=== PATIENT | male | born 1960 | race Caucasian/White ===

== ENCOUNTER 2018-02-02 10:37 | Emergency (ER) | payer BC, OTHER ==
[2018-02-02 10:44] VITALS: BP 140/89
--- NOTE | 2018-02-02 10:56 | EDM.PDOC ---
ED HPI GENERAL MEDICAL PROBLEM - General Chief Complaint: Lower Extremity Injury/Pain Stated Complaint: FALL Time Seen by Provider: 02/02/18 10:54 Source of Information: Reports: Patient History Limitations: Reports: No Limitations - History of Present Illness INITIAL COMMENTS - FREE TEXT/NARRATIVE: HISTORY AND PHYSICAL: History of present illness: Patient is a 57-year-old male who presents to the emergency room today with complaints of "tailbone pain". States he fell 01/29/2018 from standing height onto his tailbone and striking the back of his head. He denies any loss of consciousness. States he has increased pain with sitting and applying pressure to buttocks. Denies any urinary or fecal incontinence. He denies any numbness or tingling to his distal extremities. He has been ambulatory without difficulty. Been able to have normal bowel movements and no concerns with urination. States he has tried use Tylenol and ibuprofen [id number] without much relief. Review of systems: As per history of present illness and below otherwise all systems reviewed and negative. Past medical history: As per history of present illness and as reviewed below otherwise noncontributory. Surgical history: As per history of present illness and as reviewed below otherwise noncontributory. Social history: No reported history of drug or alcohol abuse. Family history: As per history of present illness and as reviewed below otherwise noncontributory. Physical exam: General: Well-developed and well-nourished 57-year-old male. Alert and oriented. Nontoxic appearing and in no acute distress. HEENT: Nontender with palpation, normocephalic, pupils equal and reactive bilaterally, negative for conjunctival pallor or scleral icterus, mucous membranes moist, throat clear, neck supple, nontender, trachea midline. No drooling or trismus noted. No meningeal signs Lungs: Clear to auscultation, breath sounds equal bilaterally, chest nontender. Heart: S1S2, regular rate and rhythm without overt murmur Abdomen: Soft, nondistended, nontender. Negative for masses or hepatosplenomegaly. Negative for costovertebral tenderness. Pelvis: Stable nontender. Genitourinary: Deferred. Rectal: Deferred. Skin: Intact, warm, dry. No lesions or rashes noted. Extremities: Moves all extremities per self without difficulty or deficits, negative for cords or calf pain. Neurovascular unremarkable. C-Spine/Back: No pinpoint vertebral tenderness upon palpation. No crepitus, step -offs or obvious deformities. Patient is fully ambulatory without difficulty or deficits. No numbness or tingling distal extremities. Will to ambulate on heels and toes. No urinary or fecal incontinence. Neuro: Awake, alert, oriented. Cranial nerves II through XII unremarkable. Cerebellum unremarkable. Motor and sensory unremarkable throughout. Exam nonfocal. Notes: I did discuss doing a head CT with the patient. He denies any tenderness with palpation, change in vision, nausea, headache or change in mental status. There is no visible soft tissue swelling or erythema/bruising. He declines a head CT at this time. He is not on any blood thinners. Will x-ray the pelvis and sacrum. No acute findings with the x-ray images. We'll give him tramadol. Supportive care measures were reviewed with patient. He voices understanding and is agreeable to plan of care. He denies any further questions at this time. Diagnostics: 1 view pelvis, sacrum Therapeutics: [] Impression: Coccyx injury Plan: 1. Please take the tramadol as directed. This medication may cause drowsiness so do not take it will driving her needing to be functioning outside of the house. He may use Tylenol and/or ibuprofen as needed for breakthrough pain. 2. Rest, ice to the area and use a doughnut/cut-out cushion seat to help alleviate discomfort. 3. They want to use a stool softener to help avoid any straining (may cause pain if straining with your bowel movements). 4. Follow-up with your primary caregiver in the next 1-2 days. Return to the ED as needed and as discussed Definitive disposition and diagnosis as appropriate pending reevaluation and review of above. Onset Date: 01/29/18 Duration: Day(s): Location: Reports: Pelvis Lower Back Pain Score (Numeric/FACES): 7 - Related Data Allergies Allergy/AdvReac Type Severity Reaction Status Date / Time lisinopril Allergy Drowsiness Verified 02/02/18 10:44 zolpidem tartrate Allergy Agitation Verified 02/02/18 10:44 [From Ambien] Home Meds: Home Meds Multivitamin [Multivitamins] 1 cap PO DAILY 01/25/14 [History] Simvastatin [Zocor] 20 mg PO BEDTIME 01/25/14 [History] Tamsulosin [Flomax] 0.4 mg PO BEDTIME 01/25/14 [History] Allopurinol [Zyloprim] 300 mg PO DAILY 03/22/14 [History] Cholecalciferol (Vitamin D3) [Vitamin D3] 2,000 unit PO BID 03/22/14 [History] Lansoprazole [Prevacid] 30 mg PO DAILY 07/05/14 [History] Escitalopram [Lexapro] 20 mg PO DAILY 11/23/15 [History] [place] Carbonate 150 mg PO BID 11/23/15 [History] [place] Carbonate 300 mg PO BID 11/23/15 [History] Losartan [Cozaar] 50 mg PO DAILY 11/23/15 [History] Primidone 250 mg PO DAILY 11/23/15 [History] Venlafaxine [Effexor XR] 75 mg PO DAILY 11/23/15 [History] risperiDONE 1 mg PO BID 11/23/15 [History] Past Medical History - Past Health History Medical/Surgical History: Denies Medical/Surgical History HEENT History: Reports: None Cardiovascular History: Reports: None Respiratory History: Reports: None Gastrointestinal History: Reports: GERD Genitourinary History: Reports: Renal Calculus Musculoskeletal History: Reports: Fracture Neurological History: Reports: None Psychiatric History: Reports: Depression, PTSD Endocrine/Metabolic History: Reports: Diabetes, Type II Hematologic History: Reports: None Immunologic History: Reports: None Oncologic (Cancer) History: Reports: None - Infectious Disease History Infectious Disease History: Reports: Measles - Past Surgical History GI Surgical History: Reports: Appendectomy, Colostomy, Hernia, Abdominal, Hernia Repair/Other Social & Family History - Tobacco Use Smoking Status *Q: Never Smoker Second Hand Smoke Exposure: No - Alcohol Use Days Per Week of Alcohol Use: 0 - Recreational Drug Use Recreational Drug Use: No Review of Systems - Review of Systems Review Of Systems: ROS reveals no pertinent complaints other than HPI. ED EXAM, GENERAL - Physical Exam Exam: See Below (See dictation) Course - Vital Signs Last Recorded V/S: Last Vital Signs Temp 98.0 F 02/02/18 10:41 Pulse 89 02/02/18 10:41 Resp 18 02/02/18 10:41 BP 140/89 02/02/18 10:41 Pulse Ox 100 02/02/18 10:41 Departure - Departure Time of Disposition: 13:07 Disposition: Home, Self-Care 01 Clinical Impression: Injury of coccyx Qualifiers: Encounter type: initial encounter Qualified Code(s): S39.92XA - Unspecified injury of lower back, initial encounter - Discharge Information Instructions: Tailbone Injury Referrals: PCP,None [Primary Care Provider] - Forms: ED Department Discharge Additional Instructions: The following information is given to patients seen in the emergency department who are being discharged to home. This information is to outline your options for follow-up care. We provide all patients seen in our emergency department with a follow-up referral. The need for follow-up, as well as the timing and circumstances, are variable depending upon the specifics of your emergency department visit. If you don't have a primary care physician on staff, we will provide you with a referral. We always advise you to contact your personal physician following an emergency department visit to inform them of the circumstance of the visit and for follow-up with them and/or the need for any referrals to a consulting specialist. The emergency department will also refer you to a specialist when appropriate. This referral assures that you have the opportunity for follow-up care with a specialist. All of these measure are taken in an effort to provide you with optimal care, which includes your follow-up. Under all circumstances we always encourage you to contact your private physician who remains a resource for coordinating your care. When calling for follow-up care, please make the office aware that this follow-up is from your recent emergency room visit. If for any reason you are refused follow-up, please contact the [facility] Emergency Department at and asked to speak to the emergency department charge nurse. [facility] [address] [place] [id number] 1. Please take the tramadol as directed. This medication may cause drowsiness so do not take it will driving her needing to be functioning outside of the house. He may use Tylenol and/or ibuprofen as needed for breakthrough pain. 2. Rest, ice to the area and use a doughnut/cut-out cushion seat to help alleviate discomfort. 3. They want to use a stool softener to help avoid any straining (may cause pain if straining with your bowel movements). 4. Follow-up with your primary caregiver in the next 1-2 days. Return to the ED as needed and as discussed
--- NOTE | 2018-02-02 12:58 | CR ---
EXAMINATION: Pelvis and sacrum and coccyx HISTORY: Pain COMPARISON: None TECHNIQUE: AP pelvis and AP and lateral views of the sacrum and coccyx FINDINGS: There is no acute osseous abnormality, dislocation, or fracture. SI joints are symmetric. H ip joint spaces are preserved. Bone mineralization is normal. Iliopectineal lines are intact. Clips p roject over the lower pelvis. Degenerative changes noted within the lower lumbar spine. IMPRESSION: No acute osseous abnormality identified.
== END 2018-02-02 13:16 | disposition home or self-care (01) ==
LOC: MW.ED 10:37
DX: S39.92XA Unspecified injury of lower back, initial encounter (principal); E11.9 Type 2 diabetes mellitus without complications; Z88.8 Allergy status to other drugs, medicaments and biological substances; Z79.899 Other long term (current) drug therapy; W19.XXXA Unspecified fall, initial encounter
CPT/HCPCS: 72170; 72170-26; 72220; 72220-26; 99282; 99283

== ENCOUNTER 2019-02-15 08:24 | Emergency (ER) | payer BC ==
[2019-02-15] MEDS ORDERED: Sodium Chloride 0.9% 10 ML Syringe FLUSH PRN (08:34)
[2019-02-15] MEDS ORDERED: Sodium Chloride 0.9% 2.5 ML Syringe FLUSH PRN (08:34)
[2019-02-15] MEDS ORDERED: Aspirin 81 MG Tab.Chew PO ONE (08:35)
[2019-02-15] MEDS ORDERED: Enoxaparin 150 MG/1 ML Syringe SUBCUT ONE ×2 (08:35→10:53)
[2019-02-15] MEDS: Diltiazem 25 MG/5 ML SDV IVPUSH ONE ×2 (08:46→10:11)
[2019-02-15] MEDS ORDERED: Sodium Chloride 0.9% 1,000 ML IV ONE (08:46)
--- NOTE | 2019-02-15 08:50 | EDM.PDOC ---
ED HPI GENERAL MEDICAL PROBLEM - General Stated Complaint: CHEST PAIN Time Seen by Provider: 02/15/19 08:33 - History of Present Illness INITIAL COMMENTS - FREE TEXT/NARRATIVE: HISTORY AND PHYSICAL: History of present illness: Patient's a 58-year-old white male with multiple medical problems including prior coronary artery stent and prior episode of atrial fibrillation who presents with a concern of shortness of breath chest pain and rapid heart rate started abruptly prior to arrival. He denies nausea vomiting diaphoresis or other concern. Patient states this episode began at 5 AM precisely and that he has in a normal sinus rhythm usually. Patient's blood pressure is systolic 100 and he continues with chest pain in the emergency department. I discussed with patient the combination of symptoms with his known coronary artery disease and new onset atrial fibrillation as it relates to treatment options and concerns I have regarding the stability of his current situation patient understands and is in agreement with electrocardioversion in the emergency if necessary. Patient spontaneously converted while in emergency department systolic blood pressure now is 130 heart rate is 120 sinus rhythm chest pain is resolved Review of systems: As per history of present illness and below otherwise all systems reviewed and negative. Past medical history: As per history of present illness and as reviewed below otherwise noncontributory. Surgical history: As per history of present illness and as reviewed below otherwise noncontributory. Social history: No reported history of drug or alcohol abuse. Family history: As per history of present illness and as reviewed below otherwise noncontributory. Physical exam: HEENT: Atraumatic, normocephalic, pupils reactive, somewhat sallow complexion no scleral icterus noted, mucous membranes moist, throat clear, neck supple, nontender, trachea midline. Lungs: Clear to auscultation, breath sounds equal bilaterally, chest nontender. Heart: S1S2, irregularly irregular negative for clicks, rubs, or JVD. Abdomen: Soft, nondistended, nontender. Negative for masses or hepatosplenomegaly. Negative for costovertebral tenderness. Pelvis: Stable nontender. Genitourinary: Deferred. Rectal: Deferred. Extremities: Atraumatic, negative for cords or calf pain. Neurovascular unremarkable. Neuro: Awake, alert, anxious, oriented. Cranial nerves II through XII unremarkable. Cerebellum unremarkable. Motor and sensory unremarkable throughout. Exam nonfocal. Diagnostics: CBC CMP troponin PT/INR TSH chest x-ray EKG Therapeutics: IV O2 monitor aspirin 325 mg Impression: #1 chest pain #2 atrial fibrillation with rapid ventricular response with spontaneous conversion in emergency department Definitive disposition and diagnosis as appropriate pending reevaluation and review of above. - Related Data Allergies Allergy/AdvReac Type Severity Reaction Status Date / Time lisinopril Allergy Drowsiness Verified 02/02/18 10:44 zolpidem tartrate Allergy Agitation Verified 02/02/18 10:44 [From Conchisien] Home Meds: Home Meds Multivitamin [Multivitamins] 1 cap PO DAILY 01/25/14 [History] Simvastatin [Zocor] 20 mg PO BEDTIME 01/25/14 [History] Tamsulosin [Flomax] 0.4 mg PO BEDTIME 01/25/14 [History] Allopurinol [Zyloprim] 300 mg PO DAILY 03/22/14 [History] Cholecalciferol (Vitamin D3) [Vitamin D3] 2,000 unit PO BID 03/22/14 [History] Lansoprazole [Prevacid] 30 mg PO DAILY 07/05/14 [History] Escitalopram [Lexapro] 20 mg PO DAILY 11/23/15 [History] [place] Carbonate 150 mg PO BID 11/23/15 [History] [place] Carbonate 300 mg PO BID 11/23/15 [History] Losartan [Cozaar] 50 mg PO DAILY 11/23/15 [History] Primidone 250 mg PO DAILY 11/23/15 [History] Venlafaxine [Effexor XR] 75 mg PO DAILY 11/23/15 [History] risperiDONE 1 mg PO BID 11/23/15 [History] Past Medical History - Past Health History Medical/Surgical History: Denies Medical/Surgical History HEENT History: Reports: None Cardiovascular History: Reports: None Respiratory History: Reports: None Gastrointestinal History: Reports: GERD Genitourinary History: Reports: Renal Calculus Musculoskeletal History: Reports: Fracture Neurological History: Reports: None Psychiatric History: Reports: Depression, PTSD Endocrine/Metabolic History: Reports: Diabetes, Type II Hematologic History: Reports: None Immunologic History: Reports: None Oncologic (Cancer) History: Reports: None - Infectious Disease History Infectious Disease History: Reports: Measles - Past Surgical History GI Surgical History: Reports: Appendectomy, Colostomy, Hernia, Abdominal, Hernia Repair/Other Social & Family History - Family History Family Medical History: Noncontributory - Caffeine Use Caffeine Use: Reports: Energy Drinks ED ROS GENERAL - Review of Systems Review Of Systems: ROS reveals no pertinent complaints other than HPI. ED EXAM, GENERAL - Physical Exam Exam: See Below (See dictation) Course - Vital Signs Last Recorded V/S: Last Vital Signs Temp 36.1 C 02/15/19 08:34 Pulse 116 H 02/15/19 10:58 Resp 16 02/15/19 10:25 BP 112/70 02/15/19 10:58 Pulse Ox 94 L 02/15/19 10:25 - Orders/Labs/Meds Orders: Active Orders 24 hr Category Date Time Status Cardiac Monitoring [RC] . DIRECTED Care 02/15/19 08:33 Active EKG Documentation Completion [RC] STAT Care 02/15/19 08:34 Active EKG Documentation Completion [RC] STAT Care 02/15/19 10:36 Active Oxygen Therapy, ED [RC] ASDIRECTED Care 02/15/19 08:33 Active Pulse Oximetry [RC] ASDIRECTED Care 02/15/19 08:34 Active DRUG SCREEN, URINE [URCHEM] Stat Lab 02/15/19 08:34 Ordered Sodium Chloride 0.9% [Saline Flush] Med 02/15/19 08:34 Active 10 ml FLUSH ASDIRECTED PRN Sodium Chloride 0.9% [Saline Flush] Med 02/15/19 08:34 Active 2.5 ml FLUSH ASDIRECTED PRN Saline Lock Insert [OM.PC] Stat Oth 02/15/19 08:33 Ordered Medication Orders Sodium Chloride (Saline Flush) 10 ml FLUSH ASDIRECTED PRN PRN Reason: Keep Vein Open Last Admin: 02/15/19 08:48 Dose: 10 ml Sodium Chloride (Saline Flush) 2.5 ml FLUSH ASDIRECTED PRN PRN Reason: Keep Vein Open Last Admin: 02/15/19 08:48 Dose: 2.5 ml Labs: Laboratory Tests 02/15/19 02/15/19 02/15/19 Range/Units 08:30 08:30 08:30 WBC 18.33 H (4.0-11.0) K/uL RBC 5.57 (4.50-5.90) M/uL Hgb 16.7 (13.0-17.0) g/dL Hct 51.1 H (38.0-50.0) % MCV 91.7 (80.0-98.0) fL MCH 30.0 (27.0-32.0) pg MCHC 32.7 (31.0-37.0) g/dL RDW Std Deviation 47.7 (28.0-62.0) fl RDW Coeff of Jon 14 (11.0-15.0) % Plt Count 254 (150-400) K/uL MPV 9.70 (7.40-12.00) fL Neut % (Auto) 74.9 (48.0-80.0) % Lymph % (Auto) 14.5 L (16.0-40.0) % [place]ink[place] % (Auto) 8.9 (0.0-15.0) % Eos % (Auto) 1.4 (0.0-7.0) % Baso % (Auto) 0.3 (0.0-1.5) % Neut # (Auto) 13.7 H (1.4-5.7) K/uL Lymph # (Auto) 2.7 H (0.6-2.4) K/uL Winkler # (Auto) 1.6 H (0.0-0.8) K/uL Eos # (Auto) 0.3 (0.0-0.7) K/uL Baso # (Auto) 0.1 (0.0-0.1) K/uL Nucleated RBC % 0.0 /100WBC Nucleated RBCs # 0 K/uL INR 1.05 Sodium 137 (136-148) mmol/L Potassium 4.0 (3.5-5.1) mmol/L Chloride 100 (98-107) mmol/L Carbon Dioxide 19.6 L (21.0-32.0) mmol/L BUN 15 (7.0-18.0) mg/dL Creatinine 1.7 H (0.8-1.3) mg/dL Est Cr Clr Drug Dosing TNP Estimated GFR (MDRD) 41.3 ml/min Glucose 299 H (74-106) mg/dL Calcium 9.1 (8.5-10.1) mg/dL Total Bilirubin 1.0 (0.2-1.0) mg/dL AST 31 (15-37) IU/L ALT 34 (14-63) IU/L Alkaline Phosphatase 32 L (46-116) U/L Troponin I 0.064 H* (0.000-0.056) ng/mL B-Natriuretic Peptide (<100) PG/ML Total Protein 7.7 (6.4-8.2) g/dL Albumin 3.7 (3.4-5.0) g/dL Globulin 4.0 (2.6-4.0) g/dL Albumin/Globulin Ratio 0.9 (0.9-1.6) TSH 3rd Generation 2.49 (0.36-3.74) uIU/mL 02/15/19 Range/Units 08:30 WBC (4.0-11.0) K/uL RBC (4.50-5.90) M/uL Hgb (13.0-17.0) g/dL Hct (38.0-50.0) % MCV (80.0-98.0) fL MCH (27.0-32.0) pg MCHC (31.0-37.0) g/dL RDW Std Deviation (28.0-62.0) fl RDW Coeff of Jon (11.0-15.0) % Plt Count (150-400) K/uL MPV (7.40-12.00) fL Neut % (Auto) (48.0-80.0) % Lymph % (Auto) (16.0-40.0) % [place]ink[place] % (Auto) (0.0-15.0) % Eos % (Auto) (0.0-7.0) % Baso % (Auto) (0.0-1.5) % Neut # (Auto) (1.4-5.7) K/uL Lymph # (Auto) (0.6-2.4) K/uL Winkler # (Auto) (0.0-0.8) K/uL Eos # (Auto) (0.0-0.7) K/uL Baso # (Auto) (0.0-0.1) K/uL Nucleated RBC % /100WBC Nucleated RBCs # K/uL INR Sodium (136-148) mmol/L Potassium (3.5-5.1) mmol/L Chloride (98-107) mmol/L Carbon Dioxide (21.0-32.0) mmol/L BUN (7.0-18.0) mg/dL Creatinine (0.8-1.3) mg/dL Est Cr Clr Drug Dosing Estimated GFR (MDRD) ml/min Glucose (74-106) mg/dL Calcium (8.5-10.1) mg/dL Total Bilirubin (0.2-1.0) mg/dL AST (15-37) IU/L ALT (14-63) IU/L Alkaline Phosphatase (46-116) U/L Troponin I (0.000-0.056) ng/mL B-Natriuretic Peptide 34 (<100) PG/ML Total Protein (6.4-8.2) g/dL Albumin (3.4-5.0) g/dL Globulin (2.6-4.0) g/dL Albumin/Globulin Ratio (0.9-1.6) TSH 3rd Generation (0.36-3.74) uIU/mL Meds: Medications Generic Name Dose Route Start Last Admin Trade Name Freq PRN Reason Stop Dose Admin Sodium Chloride 10 ml 02/15/19 08:34 02/15/19 08:48 Saline Flush FLUSH 10 ml ASDIRECTED PRN Administration Keep Vein Open Sodium Chloride 2.5 ml 02/15/19 08:34 02/15/19 08:48 Saline Flush FLUSH 2.5 ml ASDIRECTED PRN Administration Keep Vein Open Discontinued Medications Generic Name Dose Route Start Last Admin Trade Name Freq PRN Reason Stop Dose Admin Aspirin 324 mg 02/15/19 08:35 02/15/19 08:47 Aspirin PO 02/15/19 08:36 324 mg ONETIME ONE Administration Diltiazem HCl 25 mg 02/15/19 08:34 02/15/19 10:11 Diltiazem IVPUSH 02/15/19 08:35 Not Given ONETIME ONE Enoxaparin Sodium 150 mg 02/15/19 08:35 02/15/19 10:09 Lovenox SUBCUT 02/15/19 08:36 Not Given ONETIME ONE Enoxaparin Sodium 150 mg 02/15/19 10:53 02/15/19 10:56 Lovenox SUBCUT 02/15/19 10:54 150 mg ONETIME ONE Administration Fentanyl Confirm 02/15/19 08:59 02/15/19 10:10 Sublimaze Administered 02/15/19 09:00 Not Given Dose 100 mcg .ROUTE .STK-MED ONE Sodium Chloride 1,000 mls @ 999 mls/hr 02/15/19 08:46 02/15/19 08:47 Normal Saline IV 02/15/19 09:46 999 mls/hr .Bolus ONE Administration Lorazepam 1 mg 02/15/19 10:34 02/15/19 10:46 Ativan IVPUSH 02/15/19 10:35 1 mg ONETIME ONE Administration Metoprolol Tartrate 5 mg 02/15/19 10:33 02/15/19 10:40 Lopressor IVPUSH 02/15/19 10:34 5 mg ONETIME ONE Administration Metoprolol Tartrate 5 mg 02/15/19 10:55 02/15/19 10:58 Lopressor IVPUSH 02/15/19 10:56 5 mg ONETIME ONE Administration Metoprolol Tartrate Confirm 02/15/19 10:54 02/15/19 11:02 Lopressor Administered 02/15/19 10:55 Not Given Dose 5 mg .ROUTE .STK-MED ONE Metoprolol Tartrate 5 mg 02/15/19 10:58 Lopressor IVPUSH 02/15/19 10:59 ONETIME ONE Metoprolol Tartrate Confirm 02/15/19 10:56 02/15/19 11:02 Lopressor Administered 02/15/19 10:57 Not Given Dose 5 mg .ROUTE .STK-MED ONE Midazolam HCl Confirm 02/15/19 08:58 02/15/19 10:10 Versed 1 Mg/Ml Administered 02/15/19 08:59 Not Given Dose 2 mg .ROUTE .STK-MED ONE Morphine Sulfate 2 mg 02/15/19 10:31 02/15/19 10:44 Morphine IVPUSH 02/15/19 10:32 2 mg ONETIME ONE Administration Ondansetron HCl 4 mg 02/15/19 10:40 02/15/19 10:43 Zofran IVPUSH 02/15/19 10:41 4 mg ONETIME ONE Administration Ondansetron HCl Confirm 02/15/19 10:41 02/15/19 10:46 Zofran Administered 02/15/19 10:42 Not Given Dose 4 mg .ROUTE .STK-MED ONE Propofol Confirm 02/15/19 08:59 02/15/19 10:10 Diprivan 20 Ml Administered 02/15/19 09:00 Not Given Dose 200 mg .ROUTE .STK-MED ONE Departure - Departure Time of Disposition: 11:08 Disposition: DC/Tfer to Acute Hospital 02 Condition: Serious Clinical Impression: Chest pain, Atrial fibrillation with RVR - Discharge Information Referrals: PCP,Unknown [Primary Care Provider] - - My Orders Last 24 Hours: My Active Orders 02/15/19 08:33 Cardiac Monitoring [RC] . DIRECTED Oxygen Therapy, ED [RC] ASDIRECTED Saline Lock Insert [OM.PC] Stat 02/15/19 08:34 EKG Documentation Completion [RC] STAT Pulse Oximetry [RC] ASDIRECTED DRUG SCREEN, URINE [URCHEM] Stat Sodium Chloride 0.9% [Saline Flush] 10 ml FLUSH ASDIRECTED PRN Sodium Chloride 0.9% [Saline Flush] 2.5 ml FLUSH ASDIRECTED PRN 02/15/19 10:36 EKG Documentation Completion [RC] STAT - Assessment/Plan Last 24 Hours: My Active Orders 02/15/19 08:33 Cardiac Monitoring [RC] . DIRECTED Oxygen Therapy, ED [RC] ASDIRECTED Saline Lock Insert [OM.PC] Stat 02/15/19 08:34 EKG Documentation Completion [RC] STAT Pulse Oximetry [RC] ASDIRECTED DRUG SCREEN, URINE [URCHEM] Stat Sodium Chloride 0.9% [Saline Flush] 10 ml FLUSH ASDIRECTED PRN Sodium Chloride 0.9% [Saline Flush] 2.5 ml FLUSH ASDIRECTED PRN 02/15/19 10:36 EKG Documentation Completion [RC] STAT
[2019-02-15] MEDS ORDERED: Midazolam 1 MG/ML 2 ML SDV ONE (08:58)
[2019-02-15] MEDS ORDERED: fentaNYL 100 MCG/2 ML SDV ONE (08:59)
[2019-02-15] MEDS ORDERED: Propofol 200 MG/20 ML SDV ONE (08:59)
[2019-02-15 09:11] LABS: CHLORIDE,CL 100 mmol/L (98-107); SODIUM,NA 137 mmol/L (136-148)
--- NOTE | 2019-02-15 09:22 | CR ---
EXAMINATION: Portable chest radiograph. HISTORY: Shortness of breath. FINDINGS: The trachea is midline. The cardiomediastinal silhouette is within normal limits. No pulmonary infiltrates, effusions or pneumothorax. Osseous structures appear unremarkable. IMPRESSION: No acute cardiopulmonary process.
[2019-02-15] MEDS ORDERED: Morphine 2 MG/ML Syringe IVPUSH ONE (10:31)
[2019-02-15] MEDS ORDERED: Labetalol 20 MG/4 ML Syringe IVPUSH ONE (10:31)
[2019-02-15] MEDS ORDERED: Metoprolol Tartrate 5 MG/5 ML SDV IVPUSH ONE ×3 (10:33→10:58)
[2019-02-15] MEDS ORDERED: LORazepam 2 MG/ML SDV IVPUSH ONE (10:34)
[2019-02-15] MEDS ORDERED: Ondansetron 4 MG/2 ML SDV IVPUSH ONE (10:40)
[2019-02-15] MEDS ORDERED: Ondansetron 4 MG/2 ML SDV ONE (10:41)
[2019-02-15] MEDS ORDERED: Metoprolol Tartrate 5 MG/5 ML SDV ONE ×2 (10:54→10:56)
[2019-02-15 11:01] VITALS: BP 112/70
== END 2019-02-15 11:09 ==
LOC: MW.ED 08:24
DX: I48.91 Unspecified atrial fibrillation (principal); K21.9 Gastro-esophageal reflux disease without esophagitis; F32.9 Major depressive disorder, single episode, unspecified; E11.9 Type 2 diabetes mellitus without complications; Z88.8 Allergy status to other drugs, medicaments and biological substances; Z79.899 Other long term (current) drug therapy
CPT/HCPCS: 36415; 71045; 80053; 83880; 84443; 84484; 85025; 85610; 93005; 96361; 96372; 96374; 96375; 99285; A9270; J1650; J2060; J2270; J2405; J3490; J7040

== ENCOUNTER 2019-03-09 10:16 | Observation (INO) | payer BC ==
[2019-03-09] MEDS ORDERED: Sodium Chloride 0.9% 10 ML Syringe FLUSH PRN (10:25)
[2019-03-09] MEDS ORDERED: Sodium Chloride 0.9% 2.5 ML Syringe FLUSH PRN (10:25)
--- NOTE | 2019-03-09 10:26 | EDM.PDOC ---
ED HPI GENERAL MEDICAL PROBLEM - General Stated Complaint: DIZZY Time Seen by Provider: 03/09/19 10:19 Source of Information: Reports: Patient History Limitations: Reports: No Limitations - History of Present Illness INITIAL COMMENTS - FREE TEXT/NARRATIVE: History of present illness: []Patient started having palpitations and shortness of breath this morning. He was recently transferred to [place] for A. fib with RVR. He is currently on a blood thinner. He denies any chest pain at this time, numbness, tingling or difficulty speaking. Review of systems: As per history of present illness and below otherwise all systems reviewed and negative. Past medical history: As per history of present illness and as reviewed below otherwise noncontributory. Surgical history: As per history of present illness and as reviewed below otherwise noncontributory. Social history: No reported history of drug or alcohol abuse. Family history: As per history of present illness and as reviewed below otherwise noncontributory. Physical exam: General: Well developed, well nourished in NAD HEENT: Atraumatic, normocephalic, pupils reactive, negative for conjunctival pallor or scleral icterus, mucous membranes moist, throat clear, neck supple, nontender, trachea midline. Lungs: Clear to auscultation, breath sounds equal bilaterally, chest nontender. Heart: S1S2, regular, negative for clicks, rubs, or JVD. Abdomen: NABS, Soft, nondistended, nontender. Negative for masses or hepatosplenomegaly. Negative for costovertebral tenderness. Pelvis: Stable nontender. Genitourinary: Deferred. Rectal: Deferred. Extremities: Atraumatic, negative for cords or calf pain. Neurovascular unremarkable. Neuro: Awake, alert, oriented. Cranial nerves II through XII unremarkable. Cerebellum unremarkable. Motor and sensory unremarkable throughout. Exam nonfocal. Skin:warm and dry Diagnostics: CT head, CBC, chemistry, troponin Therapeutics: Observation ED Course: Stable Impression: Palpitations, chest pain, atrial fibrillation Prescriptions: Plan: Admit for observation chest pain to the hospitalist service Definitive disposition and diagnosis as appropriate pending reevaluation and review of above. midsternal Pain Score (Numeric/FACES): 0 - Related Data Allergies Allergy/AdvReac Type Severity Reaction Status Date / Time lisinopril Allergy Drowsiness Verified 02/02/18 10:44 zolpidem tartrate Allergy Agitation Verified 02/02/18 10:44 [From Ambien] Home Meds: Home Meds Multivitamin [Multivitamins] 1 cap PO DAILY 01/25/14 [History] Simvastatin [Zocor] 20 mg PO BEDTIME 01/25/14 [History] Tamsulosin [Flomax] 0.4 mg PO BEDTIME 01/25/14 [History] Allopurinol [Zyloprim] 300 mg PO DAILY 03/22/14 [History] Cholecalciferol (Vitamin D3) [Vitamin D3] 2,000 unit PO BID 03/22/14 [History] Lansoprazole [Prevacid] 30 mg PO DAILY 07/05/14 [History] Escitalopram [Lexapro] 20 mg PO DAILY 11/23/15 [History] [place] Carbonate 150 mg PO BID 11/23/15 [History] [place] Carbonate 300 mg PO BID 11/23/15 [History] Losartan [Cozaar] 50 mg PO DAILY 11/23/15 [History] Primidone 250 mg PO DAILY 11/23/15 [History] Venlafaxine [Effexor XR] 75 mg PO DAILY 11/23/15 [History] risperiDONE 1 mg PO BID 11/23/15 [History] Past Medical History - Past Health History Medical/Surgical History: Denies Medical/Surgical History HEENT History: Reports: None Cardiovascular History: Reports: None Other Cardiovascular History: reports hx of cardioversion to [place] unknown dx Respiratory History: Reports: None Gastrointestinal History: Reports: GERD Genitourinary History: Reports: Renal Calculus Musculoskeletal History: Reports: Fracture Neurological History: Reports: None Psychiatric History: Reports: Depression, PTSD Endocrine/Metabolic History: Reports: Diabetes, Type II Hematologic History: Reports: None Immunologic History: Reports: None Oncologic (Cancer) History: Reports: None - Infectious Disease History Infectious Disease History: Reports: Measles - Past Surgical History GI Surgical History: Reports: Appendectomy, Colostomy, Hernia, Abdominal, Hernia Repair/Other Social & Family History - Family History Family Medical History: Noncontributory - Caffeine Use Caffeine Use: Reports: Energy Drinks ED ROS GENERAL - Review of Systems Review Of Systems: ROS reveals no pertinent complaints other than HPI. ED EXAM, GENERAL - Physical Exam Exam: See Below (See history of present illness) Course - Vital Signs Last Recorded V/S: Last Vital Signs Temp Pulse 90 03/09/19 10:20 Resp 16 03/09/19 10:20 BP 142/96 H 03/09/19 10:20 Pulse Ox 97 03/09/19 10:20 - Orders/Labs/Meds Orders: Active Orders 24 hr Category Date Time Status Cardiac Monitoring [RC] . DIRECTED Care 03/09/19 10:25 Active EKG Documentation Completion [RC] STAT Care 03/09/19 10:25 Active Sodium Chloride 0.9% [Saline Flush] Med 03/09/19 10:25 Active 10 ml FLUSH ASDIRECTED PRN Sodium Chloride 0.9% [Saline Flush] Med 03/09/19 10:25 Active 2.5 ml FLUSH ASDIRECTED PRN Saline Lock Insert [OM.PC] Stat Oth 03/09/19 10:25 Ordered Medication Orders Sodium Chloride (Saline Flush) 10 ml FLUSH ASDIRECTED PRN PRN Reason: Keep Vein Open Sodium Chloride (Saline Flush) 2.5 ml FLUSH ASDIRECTED PRN PRN Reason: Keep Vein Open Labs: Laboratory Tests 03/09/19 03/09/19 03/09/19 Range/Units 10:25 10:25 10:25 WBC 8.52 (4.0-11.0) K/uL RBC 5.32 (4.50-5.90) M/uL Hgb 15.8 (13.0-17.0) g/dL Hct 47.8 (38.0-50.0) % MCV 89.8 (80.0-98.0) fL MCH 29.7 (27.0-32.0) pg MCHC 33.1 (31.0-37.0) g/dL RDW Std Deviation 45.4 (28.0-62.0) fl RDW Coeff of O[place] 14 (11.0-15.0) % Plt Count 258 (150-400) K/uL MPV 9.30 (7.40-12.00) fL Neut % (Auto) 74.6 (48.0-80.0) % Lymph % (Auto) 16.1 (16.0-40.0) % [place] % (Auto) 6.3 (0.0-15.0) % Eos % (Auto) 2.6 (0.0-7.0) % Baso % (Auto) 0.4 (0.0-1.5) % Neut # (Auto) 6.4 H (1.4-5.7) K/uL Lymph # (Auto) 1.4 (0.6-2.4) K/uL [place] # (Auto) 0.5 (0.0-0.8) K/uL Eos # (Auto) 0.2 (0.0-0.7) K/uL Baso # (Auto) 0.0 (0.0-0.1) K/uL Nucleated RBC % 0.0 /100WBC Nucleated RBCs # 0 K/uL INR 1.03 Sodium 136 (136-148) mmol/L Potassium 4.2 (3.5-5.1) mmol/L Chloride 101 (98-107) mmol/L Carbon Dioxide 26.2 (21.0-32.0) mmol/L BUN 15 (7.0-18.0) mg/dL Creatinine 1.5 H (0.8-1.3) mg/dL Est Cr Clr Drug Dosing 57.48 mL/min Estimated GFR (MDRD) 47.7 ml/min Glucose 148 H (74-106) mg/dL Calcium 9.9 (8.5-10.1) mg/dL Total Bilirubin 0.7 (0.2-1.0) mg/dL AST 12 L (15-37) IU/L ALT 20 (14-63) IU/L Alkaline Phosphatase 32 L (46-116) U/L Troponin I < 0.050 (0.000-0.056) ng/mL Total Protein 8.0 (6.4-8.2) g/dL Albumin 4.0 (3.4-5.0) g/dL Globulin 4.0 (2.6-4.0) g/dL Albumin/Globulin Ratio 1.0 (0.9-1.6) Meds: Medications Generic Name Dose Route Start Last Admin Trade Name Freq PRN Reason Stop Dose Admin Sodium Chloride 10 ml 03/09/19 10:25 Saline Flush FLUSH ASDIRECTED PRN Keep Vein Open Sodium Chloride 2.5 ml 03/09/19 10:25 Saline Flush FLUSH ASDIRECTED PRN Keep Vein Open Departure - Departure Time of Disposition: 11:22 Disposition: Refer to Observation Condition: Good Clinical Impression: Chest pain Qualifiers: Chest pain type: unspecified Qualified Code(s): R07.9 - Chest pain, unspecified Atrial fibrillation Qualifiers: Atrial fibrillation type: paroxysmal Qualified Code(s): I48.0 - Paroxysmal atrial fibrillation Referrals: PCP,Unknown [Primary Care Provider] - - My Orders Last 24 Hours: My Active Orders 03/09/19 10:25 Cardiac Monitoring [RC] . DIRECTED EKG Documentation Completion [RC] STAT Sodium Chloride 0.9% [Saline Flush] 10 ml FLUSH ASDIRECTED PRN Sodium Chloride 0.9% [Saline Flush] 2.5 ml FLUSH ASDIRECTED PRN Saline Lock Insert [OM.PC] Stat - Assessment/Plan Last 24 Hours: My Active Orders 03/09/19 10:25 Cardiac Monitoring [RC] . DIRECTED EKG Documentation Completion [RC] STAT Sodium Chloride 0.9% [Saline Flush] 10 ml FLUSH ASDIRECTED PRN Sodium Chloride 0.9% [Saline Flush] 2.5 ml FLUSH ASDIRECTED PRN Saline Lock Insert [OM.PC] Stat
--- NOTE | 2019-03-09 11:03 | CT ---
EXAMINATION: Non contrast CT head. Coronal and sagittal reformats. HISTORY: Pain FINDINGS: No evidence of intra or extra axial hemorrhage, mass, midline shift, hydrocephalus or edema. No hypoattenuation changes in the major vascular territories to suggest acute infarct. No abnormal intracranial calcifications are detected. No evidence of substantial vascular calcifications. Paranasal sinuses and mastoid air cells are well aerated without substantial findings. Pituitary fossa appears unremarkable. Orbits and globes are symmetric. Calvarium is intact. No evidence of skull fracture. There is inflammation within the region of the left parotid gland. The parotid glands appear predominantly fatty replaced. IMPRESSION: 1. No acute intracranial findings. 2. Mild inflammation within the region of the left parotid gland.
[2019-03-09 11:09] LABS: CHLORIDE,CL 101 mmol/L (98-107); SODIUM,NA 136 mmol/L (136-148)
--- NOTE | 2019-03-09 13:34 | PCM.HP ---
H&P History of Present Illness - General Date of Service: 03/09/19 Admit Problem/Dx: Admission Diagnosis/Problem Admission Diagnosis/Problem Chest pain Source of Information: Patient History Limitations: Reports: No Limitations - History of Present Illness Initial Comments - Free Text/Narative: This 58 year old male with pmh of recent bilateral PE, Afib with RVR , diet controled DM, depress and anxiety presented to the ED today with complaints of shortness of breath. He reports he arrived at his therapist appointment and she mentioned he didn't look well and he admitted he didn't feel well. He reports he was feeling short of breath and some heaviness in his chest. He denies over chest pain or palpitations, but that things didn't feel right. He denies diaphoresis, nausea vomiting. No abdominal pain. No black or bloody stools in his colostomy. He reports darker urine than normal. he reports eating and drinking well and no complaints of URI symptoms or fevers. He was recently discharged (02/18) from [facility] in [place] after being transferred from our ED for elevated troponin and chest pain. he was found to have bilateral PEs emerging from right and left pulmonary arteries into the bifurcation vessels, which were fairly extensive. he was started ON Eliquis and also have event of Afib with RVR and started on Diltiazem as well. Cr on last check there was 0.9. In the ED, CBC WNL. Cr 1.5, glucose 148 and troponin negative EKG SR with no ST changes. CXR negative. Head CT negative as well. He will be admitted for chest pain rule out VT. midsternal Pain Score (Numeric/FACES): 0 - Related Data Allergies/Adverse Reactions: Allergies Allergy/AdvReac Type Severity Reaction Status Date / Time lisinopril Allergy Drowsiness Verified 02/02/18 10:44 zolpidem tartrate Allergy Agitation Verified 02/02/18 10:44 [From Andreas] Home Medications: Home Meds Multivitamin [Multivitamins] 1 cap PO DAILY 01/25/14 [History] Allopurinol [Zyloprim] 100 mg PO DAILY 03/22/14 [History] [place] Carbonate 600 mg PO BID 11/23/15 [History] ARIPiprazole [Aripiprazole] 20 mg PO DAILY 03/09/19 [History] Apixaban [Eliquis] 5 mg PO BID 03/09/19 [History] Diltiazem HCl [Diltiazem ER] 120 mg PO DAILY 03/09/19 [History] Esomeprazole Magnesium 40 mg PO ACBREAKFAST 03/09/19 [History] QUEtiapine Fumarate [Quetiapine Fumarate ER] 200 mg PO DAILY 03/09/19 [History] Rosuvastatin Calcium 20 mg PO DAILY 03/09/19 [History] Venlafaxine [Effexor] 100 mg PO DAILY 03/09/19 [History] Past Medical History - Past Health History Medical/Surgical History: Denies Medical/Surgical History HEENT History: Reports: None Cardiovascular History: Reports: Afib, Blood Clots/VTE/DVT, High Cholesterol Other Cardiovascular History: reports hx of cardioversion to [place] unknown dx Respiratory History: Reports: PE, Sleep Apnea Gastrointestinal History: Reports: GERD, Other (See Below) (colostomy) Genitourinary History: Reports: Renal Calculus Musculoskeletal History: Reports: Fracture Neurological History: Reports: None Psychiatric History: Reports: Anxiety, Depression, PTSD Endocrine/Metabolic History: Reports: Diabetes, Type II Hematologic History: Reports: Anticoagulation Therapy Immunologic History: Reports: None Oncologic (Cancer) History: Reports: Colon - Infectious Disease History Infectious Disease History: Reports: Measles - Past Surgical History Head Surgeries/Procedures: Reports: None HEENT Surgical History: Reports: Tonsillectomy Cardiovascular Surgical History: Reports: None GI Surgical History: Reports: Appendectomy, Colostomy, Hernia, Abdominal, Hernia Repair/Other Male Surgical History: Reports: Lithotripsy ([facility]) Endocrine Surgical History: Reports: None Musculoskeletal Surgical History: Reports: None Social & Family History - Family History Family Medical History: Noncontributory - Tobacco Use Smoking Status *Q: Former Smoker Years of Tobacco use: 5 Packs/Tins Daily: 1 Used Tobacco, but Quit: Yes Month/Year Tobacco Last Used: 1997 Second Hand Smoke Exposure: No - Caffeine Use Caffeine Use: Reports: Energy Drinks, Soda Caffeine Use Comment: 1 energy drink - Recreational Drug Use Recreational Drug Use: No H&P Review of Systems - Review of Systems: Review Of Systems: See Below General: Reports: Malaise. Denies: Fever, Chills, Weakness HEENT: Reports: No Symptoms. Denies: Headaches, Sinus Congestion, Sore Throat Pulmonary: Reports: Shortness of Breath (much improved since arriving to the ED) Cardiovascular: Reports: Chest Pain (heaviness, which has now gone away.) Gastrointestinal: Reports: No Symptoms. Denies: Abdominal Pain, Black Stool, Bloody Stool, Nausea, Vomiting Genitourinary: Reports: No Symptoms, Other (urine is darker yellow than normal.) . Denies: Dysuria, Frequency, Burning Musculoskeletal: Reports: No Symptoms. Denies: Neck Pain Skin: Reports: No Symptoms Psychiatric: Reports: No Symptoms Neurological: Reports: No Symptoms Hematologic/Lymphatic: Reports: No Symptoms Immunologic: Reports: No Symptoms Exam - Exam Exam: See Below - Vital Signs Vital Signs: Last Vital Signs Temp 96.8 F 03/09/19 13:20 Pulse 73 03/09/19 13:20 Resp 18 03/09/19 13:20 BP 131/84 03/09/19 13:20 Pulse Ox 96 03/09/19 13:20 Weight: 132.903 kg - Exam General: Alert, Oriented, Cooperative HEENT: Conjunctiva Clear, Mucosa Moist & [place], Pupils Reactive Neck: Supple, Trachea Midline Lungs: Clear to Auscultation, Normal Respiratory Effort Cardiovascular: Regular Rate, Regular Rhythm, Normal S1, Normal S2. No: Systolic Murmur GI/Abdominal Exam: Normal Bowel Sounds, Soft, Non-Tender, Other (colostomy intact, stoma pink, stool noted in colostomy) Back Exam: Normal Inspection, Full Range of Motion Extremities: Normal Inspection, Normal Range of Motion, Non-Tender, No Pedal Edema Neuro Extensive - Mental Status: Alert, Oriented x3 Neuro Extensive - Motor, Sensory, Reflexes: CN II-XII Intact Psychiatric: Alert, Normal Affect, Normal Mood, Other (flat affect, slow to respond, but noted to be baseline.) - Patient Data Lab Results Last 24 hrs: Laboratory Results - last 24 hr 03/09/19 03/09/19 03/09/19 Range/Units 10:25 10:25 10:25 WBC 8.52 (4.0-11.0) K/uL RBC 5.32 (4.50-5.90) M/uL Hgb 15.8 (13.0-17.0) g/dL Hct 47.8 (38.0-50.0) % MCV 89.8 (80.0-98.0) fL MCH 29.7 (27.0-32.0) pg MCHC 33.1 (31.0-37.0) g/dL RDW Std Deviation 45.4 (28.0-62.0) fl RDW Coeff of [place] 14 (11.0-15.0) % Plt Count 258 (150-400) K/uL MPV 9.30 (7.40-12.00) fL Neut % (Auto) 74.6 (48.0-80.0) % Lymph % (Auto) 16.1 (16.0-40.0) % [place] % (Auto) 6.3 (0.0-15.0) % Eos % (Auto) 2.6 (0.0-7.0) % Baso % (Auto) 0.4 (0.0-1.5) % Neut # (Auto) 6.4 H (1.4-5.7) K/uL Lymph # (Auto) 1.4 (0.6-2.4) K/uL [place] # (Auto) 0.5 (0.0-0.8) K/uL Eos # (Auto) 0.2 (0.0-0.7) K/uL Baso # (Auto) 0.0 (0.0-0.1) K/uL Nucleated RBC % 0.0 /100WBC Nucleated RBCs # 0 K/uL INR 1.03 Sodium 136 (136-148) mmol/L Potassium 4.2 (3.5-5.1) mmol/L Chloride 101 (98-107) mmol/L Carbon Dioxide 26.2 (21.0-32.0) mmol/L BUN 15 (7.0-18.0) mg/dL Creatinine 1.5 H (0.8-1.3) mg/dL Est Cr Clr Drug Dosing 57.48 mL/min Estimated GFR (MDRD) 47.7 ml/min Glucose 148 H (74-106) mg/dL Calcium 9.9 (8.5-10.1) mg/dL Total Bilirubin 0.7 (0.2-1.0) mg/dL AST 12 L (15-37) IU/L ALT 20 (14-63) IU/L Alkaline Phosphatase 32 L (46-116) U/L Troponin I < 0.050 (0.000-0.056) ng/mL Total Protein 8.0 (6.4-8.2) g/dL Albumin 4.0 (3.4-5.0) g/dL Globulin 4.0 (2.6-4.0) g/dL Albumin/Globulin Ratio 1.0 (0.9-1.6) Result Diagrams: 03/09/19 10:25 03/09/19 10:25 - Problem List (1) Dyspnea SNOMED Code(s): 353726499 ICD Code: R06.00 - DYSPNEA, UNSPECIFIED Status: Acute Current Visit: Yes Qualifiers: Dyspnea type: shortness of breath Qualified Code(s): R06.02 - Shortness of breath; R06.00 - Dyspnea, unspecified; R06.01 - Orthopnea (2) Dehydration SNOMED Code(s): 34764652 ICD Code: E86.0 - DEHYDRATION Status: Acute Current Visit: Yes (3) Chest pain SNOMED Code(s): 01331390 ICD Code: R07.9 - CHEST PAIN, UNSPECIFIED Status: Acute Current Visit: Yes Qualifiers: Chest pain type: unspecified Qualified Code(s): R07.9 - Chest pain, unspecified (4) Anxiety and depression SNOMED Code(s): 102239525 ICD Code: F41.9 - ANXIETY DISORDER, UNSPECIFIED; F32.9 - MAJOR DEPRESSIVE DISORDER, SINGLE EPISODE, UNSPECIFIED Status: Chronic Current Visit: Yes (5) Hx pulmonary embolism SNOMED Code(s): 818893545 ICD Code: Z86.711 - PERSONAL HISTORY OF PULMONARY EMBOLISM Status: Chronic Current Visit: Yes (6) Anticoagulated SNOMED Code(s): 821448124, 045320994 ICD Code: Z79.01 - RESIDENTIAL (CURRENT) USE OF ANTICOAGULANTS Status: Chronic Current Visit: Yes (7) Paroxysmal A-fib SNOMED Code(s): 862979292 ICD Code: I48.0 - PAROXYSMAL ATRIAL FIBRILLATION Status: Chronic Current Visit: Yes (8) History of colon cancer SNOMED Code(s): 081086496 ICD Code: Z85.038 - PERSONAL HISTORY OF MALIGNANT NEOPLASM OF LARGE INTESTINE Status: Chronic Current Visit: Yes (9) Colostomy in place SNOMED Code(s): 785412256, 645774962 ICD Code: Z93.3 - COLOSTOMY STATUS Status: Chronic Current Visit: Yes Problem List Initiated/Reviewed/Updated: Yes Orders Last 24hrs: Active Orders 24 hr Category Date Time Status Patient Status [ADT] Stat ADT 03/09/19 11:21 Active Cardiac Monitoring [RC] . DIRECTED Care 03/09/19 10:25 Active Sodium Chloride 0.9% [Saline Flush] Med 03/09/19 10:25 Active 10 ml FLUSH ASDIRECTED PRN Sodium Chloride 0.9% [Saline Flush] Med 03/09/19 10:25 Active 2.5 ml FLUSH ASDIRECTED PRN Saline Lock Insert [OM.PC] Stat Oth 03/09/19 10:25 Ordered Medication Orders Sodium Chloride (Saline Flush) 10 ml FLUSH ASDIRECTED PRN PRN Reason: Keep Vein Open Sodium Chloride (Saline Flush) 2.5 ml FLUSH ASDIRECTED PRN PRN Reason: Keep Vein Open Assessment/Plan Comment:: This 58 year old male admitted with dyspnea, chest pain and mild dehydration 1. Dyspnea: May be related to newly diagnosed bilateral PE. feeling better now. Will monitor on telemetry 2. Chest pain: Trend troponins. Monitor on telemetry. heaviness he experienced may be related to PEs. 3. Dehydration: Cr elevated 1.5 from baseline 0.9. Will give NS 100 ml/hr overnight 4. PE: Bilateral, stable. Continue Eliquis 5. A fib: Stable, SR on EKG. Monitor on telemetry. Continue Diltiazem. 6. Anxiety/depression: On [place], will obtain level. Continue home medications. Stable. VTE prophylaxis: Eliquis Dispo: 1 day
[2019-03-09] MEDS ORDERED: Acetaminophen 325 MG Tab PO PRN (14:00)
[2019-03-09] MEDS: Sodium Chloride 0.9% 1,000 ML IV SCH (14:59)
[2019-03-09] MEDS: Apixaban 5 MG Tab PO SCH (21:12)
[2019-03-09] MEDS: Lithium Carbonate 300 MG Cap PO SCH (21:12)
[2019-03-10] MEDS: Sodium Chloride 0.9% 1,000 ML IV SCH
[2019-03-10] MEDS ORDERED: Omeprazole 20 MG Cap.CR PO SCH (07:30)
[2019-03-10 07:45] VITALS: BP 135/85
[2019-03-10] MEDS: Apixaban 5 MG Tab PO SCH (08:10)
[2019-03-10] MEDS: Lithium Carbonate 300 MG Cap PO SCH (08:16)
[2019-03-10] MEDS ORDERED: Rosuvastatin 10 MG Tab PO SCH (09:00)
[2019-03-10] MEDS ORDERED: VENLAFAXINE 100 MG PO SCH (09:00)
[2019-03-10] MEDS ORDERED: ARIPiprazole 10 MG Tab PO SCH (09:00)
[2019-03-10] MEDS ORDERED: QUETIAPINE 200 MG PO SCH (09:00)
[2019-03-10] MEDS ORDERED: Diltiazem 120 MG Cap.CD PO SCH (09:00)
[2019-03-10] MEDS ORDERED: Allopurinol 100 MG Tab PO SCH (09:00)
--- NOTE | 2019-03-10 09:15 | PCM.DCSUM1 ---
Discharge Summary - Discharge Data Discharge Date: 03/10/19 Discharge Disposition: Home, Self-Care 01 Condition: Good - Discharge Diagnosis/Problem(s) (1) Chest pain SNOMED Code(s): 78001843 ICD Code: R07.9 - CHEST PAIN, UNSPECIFIED Status: Resolved Priority: High Qualifiers: Chest pain type: unspecified Qualified Code(s): R07.9 - Chest pain, unspecified (2) Acute coronary syndrome SNOMED Code(s): 515321537 ICD Code: I24.9 - ACUTE ISCHEMIC HEART DISEASE, UNSPECIFIED Status: Chronic Priority: High (3) Anticoagulated SNOMED Code(s): 524176003, 233426421 ICD Code: Z79.01 - ASSISTED (CURRENT) USE OF ANTICOAGULANTS Status: Chronic Priority: High (4) Atrial fibrillation SNOMED Code(s): 91723414 ICD Code: I48.91 - UNSPECIFIED ATRIAL FIBRILLATION Status: Chronic Priority: High Qualifiers: Atrial fibrillation type: paroxysmal Qualified Code(s): I48.0 - Paroxysmal atrial fibrillation - Patient Summary/Data Hospital Course: The patient is a 58-year-old gentleman who had been admitted to acute hospitalization secondary to chest pain. He is admitted on March 09, 2019 to observation status. The patient does have a past history of pulmonary emboli, A. fib with RVR and diet-controlled diabetes mellitus type 2. The patient had a right that his physical therapist's office who had indicated that the patient did not "look too good" and was referred to the emergency department. The patient's vital signs initially were good. The patient also had laboratory studies which were good with the exception of his creatinine was mildly elevated at 1.5 mg/dL and with fluid hydration this had normalized to 1.3. Further, the patient had 3 troponins which were otherwise undetectable. Telemetry head showed no acute events. EKG was unchanged. The patient felt like he could go home. He has been recommended to continue with his heart healthy diet, carb constant as tolerated. He is also to have activity as tolerated. The patient has been hemodynamically stable and he is discharged from acute hospitalization with the recommendations above. - Patient Instructions Diet: Heart Healthy Diet, Diabetic Diet Activity: As Tolerated - Discharge Plan *PRESCRIPTION DRUG MONITORING PROGRAM REVIEWED*: No *COPY OF PRESCRIPTION DRUG MONITORING REPORT IN PATIENT ALEXANDREA: No Home Medications: Home Meds Multivitamin [Multivitamins] 1 cap PO DAILY 01/25/14 [History] Allopurinol [Zyloprim] 100 mg PO DAILY 03/22/14 [History] [place] Carbonate 600 mg PO BID 11/23/15 [History] ARIPiprazole [Aripiprazole] 20 mg PO DAILY 03/09/19 [History] Apixaban [Eliquis] 5 mg PO BID 03/09/19 [History] Esomeprazole Magnesium 40 mg PO ACBREAKFAST 03/09/19 [History] QUEtiapine Fumarate [Quetiapine Fumarate ER] 200 mg PO DAILY 03/09/19 [History] Rosuvastatin Calcium 20 mg PO DAILY 03/09/19 [History] Venlafaxine [Effexor] 100 mg PO DAILY 03/09/19 [History] dilTIAZem HCl [Diltiazem 24Hr ER (Xr)] 120 mg PO DAILY 03/10/19 [History] Patient Handouts: Nonspecific Chest Pain, [id number]-[id number] Referrals: [facility] [Outside] Alfonzo Mccall MD [Physician] - 03/18/19 10:15 am - Discharge Summary/Plan Comment DC Time >30 min.: Yes - General Info Date of Service: 03/10/19 Admission Dx/Problem (Free Text: Admission Diagnosis/Problem Admission Diagnosis/Problem Chest pain Functional Status: Reports: Pain Controlled - Review of Systems General: Reports: No Symptoms HEENT: Reports: No Symptoms Pulmonary: Reports: No Symptoms Cardiovascular: Reports: No Symptoms Gastrointestinal: Reports: No Symptoms Genitourinary: Reports: No Symptoms Musculoskeletal: Reports: No Symptoms Skin: Reports: No Symptoms Neurological: Reports: No Symptoms Psychiatric: Reports: No Symptoms - Patient Data Vitals - Most Recent: Last Vital Signs Temp 36.4 C 03/10/19 07:44 Pulse 73 03/10/19 08:10 Resp 16 03/10/19 07:44 BP 135/85 03/10/19 08:10 Pulse Ox 100 03/10/19 07:44 Weight - Most Recent: 132.903 kg I&O - Last 24 hours: Intake & Output 03/09/19 03/10/19 03/10/19 22:59 06:59 14:59 Intake Total 100 1546 Output Total 525 Balance 100 1021 Lab Results - Last 24 hrs: Laboratory Results - last 24 hr 03/09/19 03/09/19 03/09/19 Range/Units 10:25 10:25 10:25 WBC 8.52 (4.0-11.0) K/uL RBC 5.32 (4.50-5.90) M/uL Hgb 15.8 (13.0-17.0) g/dL Hct 47.8 (38.0-50.0) % MCV 89.8 (80.0-98.0) fL MCH 29.7 (27.0-32.0) pg MCHC 33.1 (31.0-37.0) g/dL RDW Std Deviation 45.4 (28.0-62.0) fl RDW Coeff of Jon 14 (11.0-15.0) % Plt Count 258 (150-400) K/uL MPV 9.30 (7.40-12.00) fL Neut % (Auto) 74.6 (48.0-80.0) % Lymph % (Auto) 16.1 (16.0-40.0) % [place] % (Auto) 6.3 (0.0-15.0) % Eos % (Auto) 2.6 (0.0-7.0) % Baso % (Auto) 0.4 (0.0-1.5) % Neut # (Auto) 6.4 H (1.4-5.7) K/uL Lymph # (Auto) 1.4 (0.6-2.4) K/uL [place] # (Auto) 0.5 (0.0-0.8) K/uL Eos # (Auto) 0.2 (0.0-0.7) K/uL Baso # (Auto) 0.0 (0.0-0.1) K/uL Nucleated RBC % 0.0 /100WBC Nucleated RBCs # 0 K/uL INR 1.03 Sodium 136 (136-148) mmol/L Potassium 4.2 (3.5-5.1) mmol/L Chloride 101 (98-107) mmol/L Carbon Dioxide 26.2 (21.0-32.0) mmol/L BUN 15 (7.0-18.0) mg/dL Creatinine 1.5 H (0.8-1.3) mg/dL Est Cr Clr Drug Dosing 57.48 mL/min Estimated GFR (MDRD) 47.7 ml/min Glucose 148 H (74-106) mg/dL Calcium 9.9 (8.5-10.1) mg/dL Total Bilirubin 0.7 (0.2-1.0) mg/dL AST 12 L (15-37) IU/L ALT 20 (14-63) IU/L Alkaline Phosphatase 32 L (46-116) U/L Troponin I < 0.050 (0.000-0.056) ng/mL Total Protein 8.0 (6.4-8.2) g/dL Albumin 4.0 (3.4-5.0) g/dL Globulin 4.0 (2.6-4.0) g/dL Albumin/Globulin Ratio 1.0 (0.9-1.6) Urine Color Urine Appearance Urine pH (5.0-8.0) Ur Specific Lewis (1.001-1.035) Urine Protein (NEGATIVE) mg/dL Urine Glucose (UA) (NEGATIVE) mg/dL Urine Ketones (NEGATIVE) mg/dL Urine Occult Blood (NEGATIVE) Urine Nitrite (NEGATIVE) Urine Bilirubin (NEGATIVE) Urine Urobilinogen (<2.0) EU/dL Ur Leukocyte Esterase (NEGATIVE) Urine RBC (0-2/HPF) Urine WBC (0-5/HPF) Ur Epithelial Cells (NONE-FEW) Urine Bacteria (NEGATIVE) 03/09/19 03/09/19 03/09/19 Range/Units 15:00 16:46 23:05 WBC (4.0-11.0) K/uL RBC (4.50-5.90) M/uL Hgb (13.0-17.0) g/dL Hct (38.0-50.0) % MCV (80.0-98.0) fL MCH (27.0-32.0) pg MCHC (31.0-37.0) g/dL RDW Std Deviation (28.0-62.0) fl RDW Coeff of Jon (11.0-15.0) % Plt Count (150-400) K/uL MPV (7.40-12.00) fL Neut % (Auto) (48.0-80.0) % Lymph % (Auto) (16.0-40.0) % [place] % (Auto) (0.0-15.0) % Eos % (Auto) (0.0-7.0) % Baso % (Auto) (0.0-1.5) % Neut # (Auto) (1.4-5.7) K/uL Lymph # (Auto) (0.6-2.4) K/uL [place] # (Auto) (0.0-0.8) K/uL Eos # (Auto) (0.0-0.7) K/uL Baso # (Auto) (0.0-0.1) K/uL Nucleated RBC % /100WBC Nucleated RBCs # K/uL INR Sodium (136-148) mmol/L Potassium (3.5-5.1) mmol/L Chloride (98-107) mmol/L Carbon Dioxide (21.0-32.0) mmol/L BUN (7.0-18.0) mg/dL Creatinine (0.8-1.3) mg/dL Est Cr Clr Drug Dosing mL/min Estimated GFR (MDRD) ml/min Glucose (74-106) mg/dL Calcium (8.5-10.1) mg/dL Total Bilirubin (0.2-1.0) mg/dL AST (15-37) IU/L ALT (14-63) IU/L Alkaline Phosphatase (46-116) U/L Troponin I < 0.050 < 0.050 (0.000-0.056) ng/mL Total Protein (6.4-8.2) g/dL Albumin (3.4-5.0) g/dL Globulin (2.6-4.0) g/dL Albumin/Globulin Ratio (0.9-1.6) Urine Color YELLOW Urine Appearance CLEAR Urine pH 6.0 (5.0-8.0) Ur Specific Lewis 1.020 (1.001-1.035) Urine Protein NEGATIVE (NEGATIVE) mg/dL Urine Glucose (UA) NEGATIVE (NEGATIVE) mg/dL Urine Ketones NEGATIVE (NEGATIVE) mg/dL Urine Occult Blood MODERATE H (NEGATIVE) Urine Nitrite NEGATIVE (NEGATIVE) Urine Bilirubin NEGATIVE (NEGATIVE) Urine Urobilinogen 0.2 (<2.0) EU/dL Ur Leukocyte Esterase NEGATIVE (NEGATIVE) Urine RBC 0-1 (0-2/HPF) Urine WBC 0-1 (0-5/HPF) Ur Epithelial Cells RARE (NONE-FEW) Urine Bacteria RARE (NEGATIVE) 03/10/19 Range/Units 05:05 WBC (4.0-11.0) K/uL RBC (4.50-5.90) M/uL Hgb (13.0-17.0) g/dL Hct (38.0-50.0) % MCV (80.0-98.0) fL MCH (27.0-32.0) pg MCHC (31.0-37.0) g/dL RDW Std Deviation (28.0-62.0) fl RDW Coeff of Jon (11.0-15.0) % Plt Count (150-400) K/uL MPV (7.40-12.00) fL Neut % (Auto) (48.0-80.0) % Lymph % (Auto) (16.0-40.0) % [place] % (Auto) (0.0-15.0) % Eos % (Auto) (0.0-7.0) % Baso % (Auto) (0.0-1.5) % Neut # (Auto) (1.4-5.7) K/uL Lymph # (Auto) (0.6-2.4) K/uL [place] # (Auto) (0.0-0.8) K/uL Eos # (Auto) (0.0-0.7) K/uL Baso # (Auto) (0.0-0.1) K/uL Nucleated RBC % /100WBC Nucleated RBCs # K/uL INR Sodium 140 (136-148) mmol/L Potassium 4.7 (3.5-5.1) mmol/L Chloride 105 (98-107) mmol/L Carbon Dioxide 29.2 (21.0-32.0) mmol/L BUN 14 (7.0-18.0) mg/dL Creatinine 1.3 (0.8-1.3) mg/dL Est Cr Clr Drug Dosing 66.32 mL/min Estimated GFR (MDRD) 56.3 ml/min Glucose 118 H (74-106) mg/dL Calcium 8.9 (8.5-10.1) mg/dL Total Bilirubin (0.2-1.0) mg/dL AST (15-37) IU/L ALT (14-63) IU/L Alkaline Phosphatase (46-116) U/L Troponin I (0.000-0.056) ng/mL Total Protein (6.4-8.2) g/dL Albumin (3.4-5.0) g/dL Globulin (2.6-4.0) g/dL Albumin/Globulin Ratio (0.9-1.6) Urine Color Urine Appearance Urine pH (5.0-8.0) Ur Specific Lewis (1.001-1.035) Urine Protein (NEGATIVE) mg/dL Urine Glucose (UA) (NEGATIVE) mg/dL Urine Ketones (NEGATIVE) mg/dL Urine Occult Blood (NEGATIVE) Urine Nitrite (NEGATIVE) Urine Bilirubin (NEGATIVE) Urine Urobilinogen (<2.0) EU/dL Ur Leukocyte Esterase (NEGATIVE) Urine RBC (0-2/HPF) Urine WBC (0-5/HPF) Ur Epithelial Cells (NONE-FEW) Urine Bacteria (NEGATIVE) Med Orders - Current: Current Medications Acetaminophen (Tylenol) 650 mg PO Q4H PRN PRN Reason: Pain (mild 1-3) Allopurinol (Zyloprim) 100 mg PO DAILY [facility] Last Admin: 03/10/19 08:11 Dose: 100 mg Apixaban (Eliquis) 5 mg PO BID [facility] Last Admin: 03/10/19 08:10 Dose: 5 mg Aripiprazole (Abilify) 20 mg PO DAILY [facility] Last Admin: 03/10/19 08:10 Dose: 20 mg Diltiazem HCl (Cardizem Cd) 120 mg PO DAILY [facility] Last Admin: 03/10/19 08:10 Dose: 120 mg [place] Carbonate (Eskalith) 600 mg PO BID [facility] Last Admin: 03/10/19 08:16 Dose: 600 mg Omeprazole (Omeprazole) 40 mg PO ACBREAKFAST [facility] Last Admin: 03/10/19 06:39 Dose: 40 mg Quetiapine 200 Mg Er 1 each PO DAILY [facility] Last Admin: 03/10/19 08:12 Dose: Not Given Venlafaxine 100 Mg 1 each PO DAILY [facility] Last Admin: 03/10/19 08:12 Dose: Not Given Rosuvastatin Calcium (Crestor) 20 mg PO DAILY [facility] Last Admin: 03/10/19 08:10 Dose: 20 mg Sodium Chloride (Saline Flush) 10 ml FLUSH ASDIRECTED PRN PRN Reason: Keep Vein Open Sodium Chloride (Saline Flush) 2.5 ml FLUSH ASDIRECTED PRN PRN Reason: Keep Vein Open Discontinued Medications Sodium Chloride (Normal Saline) 1,000 mls @ 100 mls/hr IV ASDIRECTED [facility] Last Admin: 03/10/19 00:00 Dose: 100 mls/hr - Exam Quality Assessment: Denies: Supplemental Oxygen General: Reports: Alert, Oriented, Cooperative, No Acute Distress HEENT: Reports: Pupils Equal, Pupils Reactive, EOMI, Mucous Membr. Moist/[place] Neck: Reports: Supple, Trachea Midline Lungs: Reports: Clear to Auscultation, Normal Respiratory Effort Cardiovascular: Reports: Regular Rate, Irregular Rhythm. Denies: Murmurs, Gallops GI/Abdominal Exam: Normal Bowel Sounds, Soft, Non-Tender, No Distention Back Exam: Reports: Normal Inspection, Full Range of Motion Extremities: Normal Inspection, No Pedal Edema Skin: Reports: Warm, Dry, Intact Neurological: Reports: No New Focal Deficit Psy/Mental Status: Reports: Alert, Normal Affect, Normal Mood
== END 2019-03-10 10:36 | disposition home or self-care (01) ==
LOC: MW.ED 10:16 → MW.MS 11:51
PROVIDERS: ADMIT Internal Medicine; ATTEND Internal Medicine
DX: I24.9 Acute ischemic heart disease, unspecified (principal); I48.0 Paroxysmal atrial fibrillation; E11.9 Type 2 diabetes mellitus without complications; E86.0 Dehydration; K21.9 Gastro-esophageal reflux disease without esophagitis; F43.10 Post-traumatic stress disorder, unspecified; F41.9 Anxiety disorder, unspecified; F32.9 Major depressive disorder, single episode, unspecified; R06.02 Shortness of breath; Z88.8 Allergy status to other drugs, medicaments and biological substances; Z93.3 Colostomy status; Z85.038 Personal history of other malignant neoplasm of large intestine; Z87.891 Personal history of nicotine dependence; Z86.711 Personal history of pulmonary embolism; Z79.01 Long term (current) use of anticoagulants; Z79.899 Other long term (current) drug therapy
CPT/HCPCS: 36415; 70450; 71045; 80048; 80053; 80178; 81001; 84484; 85025; 85610; 93005; 96360; 96361; 99285; A9270; G0378; J7040